=== PATIENT | female | born 1965 | race American Indian/Alaskan Native ===

== ENCOUNTER 2020-10-06 21:56 | Emergency (ER) | payer OTHER, MEDICARE ==
[2020-10-06] MEDS ORDERED: hydrALAZINE 20 MG/1 ML INJ IV ONE (22:36)
[2020-10-06] MEDS ORDERED: methylPREDNISolone Sod Succinate 125 MG/2 ML INJ IV ONE (22:36)
[2020-10-06] MEDS ORDERED: METOCLOPRAMIDE 10 MG/2 ML INJ IV ONE (22:36)
[2020-10-06] MEDS ORDERED: MAGNESIUM SULFATE 2 GM/50 ML BAG IV ONE (22:36)
[2020-10-06] MEDS ORDERED: diphenhydrAMINE 50 MG/ML VIAL IV ONE (22:36)
[2020-10-06] MEDS ORDERED: LIDOCAINE (4%) 40 MG/ML TOPICAL SOLN 50 ML BOTTLE TP ONE (22:36)
--- NOTE | 2020-10-06 22:43 | Emergency Department Report ---
ED General Adult HPI - General Chief complaint: High BP Stated complaint: HIGH BP/HEADACHE PUI?: No Time Seen by Provider: 10/06/20 22:17 Source: patient, EMS ( EMS documentation not available at time of chart dictation ), RN notes reviewed, old records reviewed Mode of arrival: Stretcher Limitations: Physical Limitation - History of Present Illness Initial comments: The patient was evaluated in the emergency department for symptoms described in the history of present illness. He/she was evaluated in the context of the [facility] COVID-19 pandemic, which necessitated consideration that the patient might be at risk for infection with the virus that causes COVID-19. Institutional protocols and algorithms that pertain to the evaluation of patients at risk for COVID-19 are in a state of rapid change based on information released by regulatory bodies including the CDC and federal and state organizations. These policies and algorithms were followed during the patient's care in the emergency department. Please note that these policies, procedures and recommendations changed on a rapid basis. Primary CARE doctor: Rosales julio césar The patient is a 55-year-old female. She is not known to myself previously. She has a history of hypertension, stroke, in 2015, and in 2017, with minimal left-sided deficits. She reportedly also takes Coumadin, for "blood clot in my lungs." She thinks that she was diagnosed with blood clot in 2017. She also has a history of hypertension. Antihypertensive home medications include carvedilol, clonidine, hydralazine, lisinopril. She is sent to the emergency room from a local [place] urgent care facility. The patient reportedly presented with a complaint of headache. The headache has been present for about 2 weeks. The headache is frontal, temporal and right- sided. The headache is not sudden or thunderclap in nature. The headache is not maximal in intensity. The headache is intermittent. It is not associated with loss of vision, sore throat, neck pain, chest pain, abdominal pain, shortness of breath. It increases with palpation of the right temporal region of her scalp. Patient denies loss of vision, and denies pain with chewing and/or swallowing foods. She also denies dysphagia, change in taste, and change in smell. At the [place] facility, she was found to be hypertensive. She also had a CT scan of her brain which was negative for acute findings. She was started on a Cardene drip for hypertension. However, the patient states that neurologically, she feels like she is at her baseline. She denies loss of vision, and new/different extremity weakness/n umbness. -: Gradual, week(s) Location: head Radiation: non-radiation Quality: aching, other (Stabbing, burning) Consistency: intermittent Improves with: other Worsens with: other - Related Data Previous Rx's Medication Instructions Recorded Last Taken Type Acetaminophen [Non-Aspirin Extra 500 mg PO Q6HR PRN #30 tablet 10/07/20 Unknown Rx Strength] Metoclopramide [Reglan] 10 mg PO QID PRN #30 tablet 10/07/20 Unknown Rx Allergies Allergy/AdvReac Type Severity Reaction Status Date / Time losartan AdvReac Unknown Verified 10/06/20 23:00 NSAIDS (Non-Steroidal AdvReac Unknown Verified 10/06/20 23:00 Anti-Inflamma ED Review of Systems ROS: Stated complaint: HIGH BP/HEADACHE Other details as noted in HPI Constitutional: denies: fever, malaise Eyes: denies: eye pain, eye discharge, vision change ENT: denies: throat pain Respiratory: denies: cough Cardiovascular: denies: chest pain Gastrointestinal: denies: abdominal pain, nausea, vomiting, hematemesis, melena Musculoskeletal: denies: back pain Neurological: headache. denies: weakness Hematological/Lymphatic: denies: easy bleeding ED Past Medical Hx - Past Medical History Previous Medical History?: Yes Hx Hypertension: Yes Hx CVA: Yes Hx Heart Attack/AMI: Yes Hx Congestive Heart Failure: Yes Hx Diabetes: Yes Hx Pulmonary Embolism: Yes Hx Renal Disease: Yes - Surgical History Past Surgical History?: Yes Additional Surgical History: stents in 2007 and 2008, quadruple bypass - Social History Smoking Status: Never Smoker Substance Use Type: Alcohol - Medications Home Medications: Home Medications Medication Instructions Recorded Confirmed Last Taken Type Acetaminophen [Non-Aspirin Extra 500 mg PO Q6HR PRN #30 tablet 10/07/20 Unknown Rx Strength] Metoclopramide [Reglan] 10 mg PO QID PRN #30 tablet 10/07/20 Unknown Rx ED Physical Exam - General Limitations: No Limitations General appearance: alert, in no apparent distress, obese - Head Head exam: Present: atraumatic, normocephalic, normal inspection, other (There is reproducible right sided temporal scalp tenderness noted. No vesicular lesions noted. No redness, pus or streaking.) - Eye Eye exam: Present: normal appearance, PERRL, EOMI, other (Visual acuity intact to finger counting, color perception, reading at a close distance). Absent: nystagmus - ENT ENT exam: Present: normal exam, normal orophraynx, mucous membranes moist, normal external ear exam - Neck Neck exam: Present: normal inspection, full ROM. Absent: tenderness, meningismus - Respiratory Respiratory exam: Present: normal lung sounds bilaterally. Absent: respiratory distress, wheezes, rales, rhonchi, stridor, decreased breath sounds - Cardiovascular Cardiovascular Exam: Present: regular rate, normal rhythm, normal heart sounds. Absent: bradycardia, tachycardia, irregular rhythm, systolic murmur, diastolic murmur, rubs, gallop - GI/Abdominal GI/Abdominal exam: Present: soft. Absent: distended, tenderness, guarding, rebound, rigid, pulsatile mass - Extremities Exam Extremities exam: Present: normal inspection, full ROM, other (No facial droop. Tongue midline. Extraocular movements intact bilaterally. Facial sensation intact to light touch in V1, V2, V3 distribution bilaterally. 5 and a 5 strength in 4 extremities. Sensation intact to light touch in 4 extremities.). Absent: pedal edema, calf tenderness - Back Exam Back exam: Present: normal inspection. Absent: tenderness, CVA tenderness (R), CVA tenderness (L), paraspinal tenderness, vertebral tenderness - Neurological Exam Neurological exam: Present: alert, motor sensory deficit (5 out of 5 strength right upper, right lower extremity. Sensation is intact right upper, right lower extremity, left upper, left lower extremity to light touch. There is no past pointing in the bilateral upper extremities. There is no pronator drift. [id number] is intact bilaterally. 4 out of 5 strength left lower extremity. The patient states this is chronic.), other (There is no facial droop. The tongue is midline. Sensation intact to light touch in the bilateral V1, V2, V3 distribution. Hearing is intact. No obvious visual field cuts on direct confrontation. Shoulder shrug is intact bilaterally) - Psychiatric Psychiatric exam: Present: normal affect, normal mood - Skin Skin exam: Present: warm, dry, intact, normal color. Absent: rash ED Course Vital Signs 10/06/20 10/06/20 10/06/20 22:06 22:16 22:27 Temperature 98.5 F Pulse Rate 94 H 83 Respiratory 18 26 H Rate Blood Pressure Blood Pressure 200/89 [Left] O2 Sat by Pulse 96 98 98 Oximetry 10/06/20 10/06/20 10/06/20 22:30 22:45 22:46 Temperature Pulse Rate 80 Respiratory 18 Rate Blood Pressure 215/103 200/89 201/103 Blood Pressure [Left] O2 Sat by Pulse 99 100 Oximetry 10/07/20 10/07/20 10/07/20 00:02 00:15 00:30 Temperature Pulse Rate 69 69 Respiratory 44 H 41 H Rate Blood Pressure 201/103 198/93 193/90 Blood Pressure [Left] O2 Sat by Pulse 99 Oximetry 10/07/20 10/07/20 00:45 01:00 Temperature Pulse Rate 68 71 Respiratory 39 H 33 H Rate Blood Pressure 196/95 180/85 Blood Pressure [Left] O2 Sat by Pulse Oximetry - Reevaluation(s) Reevaluation #1: 10/06/20 23:18 Differential diagnosis, including but not limited to: Migraine headache, tension headache, cluster headache, occipital neuralgia, scalp neuralgia, hypertension Assessment and plan: 55-year-old female, who endorses no new neurologic deficits, has chronic left-sided deficits secondary to old strokes, presenting with headache for 2 weeks, which is not sudden or thunderclap in nature, not maximal in intensity. The patient had a CT scan prior to arrival to this hospital which was reportedly negative for acute findings. I brought the CT scan disc to my sonography technologist, and asked if this CT scan could be uploaded to our imaging system for independent review by our radiologist. Secondary to technical incompatibility, this disc is not able to be uploaded or interpreted. Therefore, we will repeat CT scan of the brain to exclude hemorrhage, given that patient reportedly takes Coumadin. However, her history and examination are not suggestive of subarachnoid hemorrhage. I also doubt intracranial hemorrhage. Blood pressure acceptable at this time, her examination and history at this time do not suggest hypertensive emergency, press syndrome, and if no bleed noted on CT scan of the brain, which I anticipate, I do not see an indication to initiate antihypertensive drip therapy at this time. We will treat the patient's headache aggressively, with intranasal lidocaine, Reglan, Benadryl, steroids, and magnesium. Screening laboratory studies, and EKG will be obtained. Scalp examination not consistent with cellulitis or vesicular lesions. Given age less than 60, and history/physical, temporal arteritis is very unlikely. Visual exam is very unremarkable, please see documentation, this is very unlikely to be temporal arteritis. Patient denies that other people in her house are having similar symptoms, she denies close space heaters, therefore, carbon monoxide is unlikely. 10/07/20 01:13 CT scan of the brain negative for acute findings. Laboratory studies are reviewed and appreciated. Blood pressure 180/70. Heart rate 75 bpm. Repeat neurologic examination unchanged. The patient states her headache is completely resolved. Patient noted to be standing, able to walk with a steady gait. She was also able to change herself out of her clothing. I contacted [facility] physician, Dr. Rodriguez, and discussed the patient's history, physical, pertinent imaging studies. At this point time, the patient's presentation is not consistent with hypertensive emergency. She is not encephalopathic or altered. She is not demonstrating any evidence of endorgan dysfunction. She does not require antihypertensive drip at this time. Dr. Rodriguez informs me that the patient can have follow-up with her primary care doctor within 24 hours, and a neurologist within 72 hours. Patient states that she would like to be discharged. I did offer the patient medical hospitalization/admission, however, at this point in time, I do not think that it is medically indicated for the reasons mentioned above. The patient states that she would like to be discharged. Through shared decision- making, patient and I agreed to discharge the patient, and [facility] will arrange close outpatient follow-up with both primary care, and neurology. ED Medical Decision Making - Lab Data Result diagrams: 10/06/20 23:16 10/06/20 23:16 Vital Signs 10/06/20 10/06/20 22:16 22:27 Temperature 98.5 F Pulse Rate 94 H 83 Respiratory 18 26 H Rate Blood Pressure 200/89 [Left] O2 Sat by Pulse 98 98 Oximetry - EKG Data -: EKG Interpreted by Me EKG shows normal: sinus rhythm Rate: normal - EKG Data 10/06/20 23:20 Sinus rhythm, 77 bpm, normal axis, QTC 440 ms, left ventricular hypertrophy, T wave inversions in the lateral leads. The EKG is abnormal. The EKG is not a STEMI. The EKG is unchanged from prior EKG from [facility] earlier on to day. - Radiology Data Radiology results: pending, report reviewed, image reviewed CT head without contrast INDICATION : acute headache. TECHNIQUE: Axial imaging performed from the skull apex through the skull base without the use of contrast. All CT scans at this location are performed using CT dose reduction for ALARA by means of automated exposure control. COMPARISON: None FINDINGS: Parenchyma: No acute intracranial hemorrhage or parenchymal abnormality. There are areas of encephalomalacia in the left cerebellum, right caudate head, and right basal ganglia. Periventricular hypodensities are likely in keeping with microangiopathy. Ventricles: Ventricles are normal in size and appear symmetric. Soft tissues: Soft tissues including the orbits appear normal. Bones: No acute osseous abnormality. Sinuses: Sinuses and mastoid air cells are clear. IMPRESSION: No acute abnormality. Signer Name: Bishnu Moore MD Signed: 10/06/2020 10:40 PM Workstation Name: [id number] Critical care attestation.: If time is entered above; I have spent that time in minutes in the direct care of this critically ill patient, excluding procedure time. ED Disposition Clinical Impression: Headache, Elevated blood pressure reading Disposition: DC-01 TO HOME OR SELFCARE Is pt being admited?: No Does the pt Need Aspirin: No Condition: Good Additional Instructions: Please continue current medications. Please follow-up with a primary care doctor within the next 24 hours. Please follow-up with a neurologist within the next 72 hours. Take the pain medications/headache medications as needed and directed. Please return to the emergency room right away with new pain, worsened pain, migration of pain, projectile vomiting, change in mental status, confusion, in ability to tolerate liquid feeds, new, worsened or different symptoms not present on the initial emergency room evaluation. Please note that patient was found to have high blood pressure today. It is very important that patient take her blood pressure medication. Noncompliance with blood pressure medication may result in stroke, heart attack, disability, paralysis, loss of quality of life. Recommend weight loss as tolerated, physical activity and exercise as tolerated, and diet consisting of fiber, lean protein, vegetables, avoidance of simple carbohydrates, sugars, starches and processed foods. Prescriptions: Acetaminophen [Non-Aspirin Extra Strength] 500 mg PO Q6HR PRN #30 tablet PRN Reason: Pain , Severe (7-10) Metoclopramide [Reglan] 10 mg PO QID PRN #30 tablet PRN Reason: Headache Referrals: [facility] [Provider Group] - 3-5 Days CHIQUIS MCCAIN MD [Referring] - 3-5 Days
--- NOTE | 2020-10-06 23:45 | Cat Scan Report ---
CT head without contrast INDICATION : acute headache. TECHNIQUE: Axial imaging performed from the skull apex through the skull base without the use of con trast. All CT scans at this location are performed using CT dose reduction for ALARA by means of aut omated exposure control. COMPARISON: None FINDINGS: Parenchyma: No acute intracranial hemorrhage or parenchymal abnormality. There are areas of encephal omalacia in the left cerebellum, right caudate head, and right basal ganglia. Periventricular hypoden sities are likely in keeping with microangiopathy. Ventricles: Ventricles are normal in size and appear symmetric. Soft tissues: Soft tissues including the orbits appear normal. Bones: No acute osseous abnormality. Sinuses: Sinuses and mastoid air cells are clear. IMPRESSION: No acute abnormality. Signer Name: Bishnu Moore MD Signed: 10/06/2020 11:40 PM Workstation Name: [id number]
[2020-10-06 23:47] LABS: Hematocrit 33.7 % (30.3-42.9); Hemoglobin 10.9 gm/dl (10.1-14.3); Mean Corpuscular HGB Conc 32 % (30-34); Mean Corpuscular Volume 78 fl (79-97); Platelet Count 214 K/mm3 (140-440); Red Blood Count 4.35 M/mm3 (3.65-5.03); Red Cell Distribution Width 19.8 % (13.2-15.2)
[2020-10-06 23:56] LABS: Alanine Aminotransferase 11 units/L (7-56); Albumin 3.8 g/dL (3.9-5); BUN/Creatinine Ratio 11; Blood Urea Nitrogen 10 mg/dL (7-17); Calcium 9.7 mg/dL (8.4-10.2); Hemolysis Index 1
[2020-10-07 00:07] LABS: INR 1.75 (0.87-1.13)
[2020-10-07 01:10] VITALS: BP 180/85
== END 2020-10-07 01:51 | disposition home or self-care (01) ==
LOC: ED 21:56
DX: R03.0 Elevated blood-pressure reading, without diagnosis of hypertension (principal); I11.0 Hypertensive heart disease with heart failure; I50.9 Heart failure, unspecified; I25.2 Old myocardial infarction; E11.9 Type 2 diabetes mellitus without complications; Z86.73 Personal history of transient ischemic attack (TIA), and cerebral infarction without residual deficits; Z79.899 Other long term (current) drug therapy; Z88.8 Allergy status to other drugs, medicaments and biological substances
CPT/HCPCS: 36415; 70450; 80053; 82550; 83735; 84484; 85027; 85610; 93005; 96365; 96375; 99285; J1200; J2765; J2930; J3475